=== PATIENT | female | born 1980 | race Caucasian/White ===

== ENCOUNTER 2018-05-16 11:19 | Emergency (ER) | payer MEDICAID ==
[~2018-05-16] VITALS: Ht 172.7 cm; Wt 74.8 kg
[2018-05-16 11:37] VITALS: BP 144/102; Ht 172.7 cm; Wt 74.8 kg
== END 2018-05-16 12:22 | disposition home or self-care (01) ==
LOC: ED 11:19
DX: H00.015 Hordeolum externum left lower eyelid (principal)